=== PATIENT | male | born 1990 | race Caucasian/White ===

== ENCOUNTER 2017-01-08 08:34 | Emergency (ER) | payer BC ==
[2017-01-08 08:40] VITALS: BP 156/90; PULSE 82; RESP 18; TEMP 97.2
--- NOTE | 2017-01-08 08:57 | ED ---
General Adult HPI - General Chief complaint: Urogenital Stated complaint: penile pain Time Seen by Provider: 01/08/17 08:42 Source: patient, RN notes reviewed Mode of arrival: ambulatory Limitations: no limitations - History of Present Illness Initial comments: This a 26-year-old male presents emergency Department with chief complaint of penile injury. Patient states he is having sexual course with his girlfriend states that his penis struck something hard. He states he's not sure exactly what happened , he states that he hit something hard with his penis and was not sure if it was her pelvic bone or something else. Patient states that she was it happened he had some discomfort but states that all this pain has resolved. Patient states that he lost his erection and he states that he's been unable to have an erection since then. Patient states his happened approximately 5 hours ago. Patient states that he feels that his penis is smaller than usual now. Patient denies any bruising, swelling of his penile shaft, penile gland region or swollen. Patient denies any notable was hematuria denies abdominal pain, nausea, vomiting, diarrhea or constipation. - Related Data Home Medications Medication Instructions Recorded Confirmed No Known Home Medications [No 01/08/17 01/08/17 Known Home Medications] Allergies Allergy/AdvReac Type Severity Reaction Status Date / Time No Known Allergies Allergy Verified 01/08/17 09:02 Review of Systems ROS Statement: Those systems with pertinent positive or pertinent negative responses have been documented in the HPI. ROS Other: All systems not noted in ROS Statement are negative. Past Medical History Past Medical History: No Reported History History of Any Multi-Drug Resistant Organisms: None Reported Past Surgical History: No Surgical Hx Reported Past Psychological History: No Psychological Hx Reported Smoking Status: Never smoker Past Alcohol Use History: Occasional Past Drug Use History: None Reported General Exam Limitations: no limitations General appearance: alert, in no apparent distress Respiratory exam: Present: normal lung sounds bilaterally. Absent: respiratory distress, wheezes, rales, rhonchi, stridor Cardiovascular Exam: Present: regular rate, normal rhythm, normal heart sounds. Absent: systolic murmur, diastolic murmur, rubs, gallop, clicks GI/Abdominal exam: Present: soft, normal bowel sounds. Absent: distended, tenderness, guarding, rebound, rigid exam: Present: normal inspection, other (There is no ecchymosis there is no abnormal appearance or curvature noted, there is no obvious urethral injury noted at the surface). Absent: testicular tenderness, urethral discharge, scrotal swelling Back exam: Absent: CVA tenderness (R), CVA tenderness (L) Skin exam: Present: warm, dry, intact, normal color. Absent: rash Course Vital Signs 01/08/17 08:37 Temperature 97.2 F L Pulse Rate 82 Respiratory 18 Rate Blood Pressure 156/90 O2 Sat by Pulse 100 Oximetry Medical Decision Making - Medical Decision Making 26-year-old male present emergency from for penile injury. There is no evidence of penile fracture there is no ecchymosis no swelling no curvature. Patient was unable to provide urine states that he'll follow up with urology. He did not mostly gross hematuria. Disposition Clinical Impression: Penis injury Disposition: HOME SELF-CARE Condition: Stable Additional Instructions: Follow-up with urology.Please return to the Emergency Department if symptoms worsen or any other concerns. Referrals: None,Stated [Primary Care Provider] - 1-2 days Sabino Figueroa MD [STAFF PHYSICIAN] - 1-2 days Time of Disposition: 09:33
== END 2017-01-08 09:50 | disposition home or self-care (01) ==
LOC: EC 08:34
DX: S39.94XA Unspecified injury of external genitals, initial encounter (principal); W22.8XXA Striking against or struck by other objects, initial encounter; Y93.89 Activity, other specified
CPT/HCPCS: 99283

== ENCOUNTER → 2018-05-25 | Outpatient (CLI) | payer BC ==
--- NOTE | 2018-05-25 10:47 | US ---
EXAMINATION TYPE: US abdomen complete DATE OF EXAM: 05/25/2018 COMPARISON: 11/08/2011 CLINICAL HISTORY: R10.11 RUQ Abdominal Pain. RUQ abdomen pain EXAM MEASUREMENTS: Liver Length: 14.1 cm Gallbladder Wall: 0.2 cm CHD: 0.3 cm Spleen: 11.9 cm Right Kidney: 11.3 x 4.7 x 5.2 cm Left Kidney: 11.8 x 4.7 x 5.1 cm Limited exam due to patient body habitus and overlying bowel gas Pancreas: Obscured by bowel gas Liver: wnl Gallbladder: No abnormality visualized Evidence for sonographic Flores's sign: neg CBD: Obscured by overlying bowel gas CHD: wnl Spleen: wnl Right Kidney: wnl Left Kidney: wnl Upper IVC: wnl Abd Aorta: limited visualization of proximal aorta The liver is homogenous. The intrahepatic portion of the IVC and proximal abdominal aorta are within normal limits. There is no evidence of cholelithiasis. Common bile duct is unremarkable.. The spl een is unremarkable. Kidneys are symmetric and free of hydronephrosis. No renal lesions are seen. IMPRESSION: No sonographic evidence of cholelithiasis or acute cholecystitis. HIDA scan with CCK coul d be performed if there is further concern for chronic cholecystitis or biliary dyskinesia given this patient's right upper quadrant pain. Pancreas is obscured by bowel gas.
== END | disposition home or self-care (01) ==
LOC: RADUSWWP 08:48
PROVIDERS: ATTEND Internal Medicine
DX: R10.11 Right upper quadrant pain (principal)
CPT/HCPCS: 76700

== ENCOUNTER → 2018-06-09 | Outpatient (CLI) | payer BC ==
--- NOTE | 2018-06-09 14:25 | NM ---
EXAMINATION TYPE: NM hepatobiliary w EF DATE OF EXAM: 06/09/2018 COMPARISON: NONE HISTORY: Abdominal pain TECHNIQUE: After the intravenous administration of 5.26 mCi Tc 99m Mebrofenin hepatobiliary scintigra phy is performed. Immediate images post injection. FINDINGS: There is satisfactory initial accumulation of tracer by the liver. The gallbladder is visualized wit hin 6 minutes. The small bowel activity is noted within 14 minutes. At one hour 8 ounces of oral en sure plus is given to mimic CCK and gallbladder ejection fraction is calculated at 69 %, in the fabio l range. Therefore there is no scintigraphic evidence of cystic or common bile duct obstruction to s uggest acute cholecystitis or gallbladder dyskinesia. IMPRESSION: No evidence of cystic duct obstruction. Normal ejection fraction.
== END | disposition home or self-care (01) ==
LOC: RADNMMAIN 11:55
PROVIDERS: ATTEND Internal Medicine
DX: R10.11 Right upper quadrant pain (principal)
CPT/HCPCS: 78226; A9537

== ENCOUNTER 2018-12-25 07:32 | Day surgery (SDC) | payer BC ==
[2018-12-24 09:34] VITALS: BMI 37.2
[~2018-12-25 07:32] MED LIST: LACTATED RINGERS 1,000 ML IV SCH; LIDOCAINE 1% 20 ML VIAL (10MG/ML) FOR IV START INTRADERMA PRN
[2018-12-25 07:58] VITALS: RESP 16; TEMP 98.4
[2018-12-25] MEDS ORDERED: PROPOFOL 10 MG/ML 20 ML VIAL IV ONE (08:50)
[2018-12-25] MEDS ORDERED: MIDAZOLAM 2 MG/2 ML VIAL ONE (08:50)
--- NOTE | 2018-12-25 09:30 | P.PCN ---
Date of Procedure: 12/25/18 Description of Procedure: BRIEF HISTORY: Patient is a 28-year-old pleasant male scheduled for an elective colonoscopy as a part of evaluation of bright red blood per rectum PROCEDURE PERFORMED: Colonoscopy with polypectomy. PREOPERATIVE DIAGNOSIS: Per rectum, hematochezia, rectal bleeding. ESTIMATED BLOOD LOSS: Minimal. IV sedation per Anesthesia. PROCEDURE: After informed consent was obtained, the patient, was brought into the endoscopy unit. IV sedation was administered by Anesthesia under continuous monitoring. Digital rectal examination was normal. Initially the Olympus CF-190 flexible video colonoscope was then inserted in the rectum, gradually advanced into the cecum without any difficulty. Careful examination was performed as the scope was gradually being withdrawn. Ileocecal valve and the appendiceal orifice were visualized and appeared normal. Prep was excellent. Mucosa of the cecum, ascending colon, transverse colon, descending colon, sigmoid colon, and rectum appeared normal. Small 3 mm transverse colon polyp removed with cold forceps. Retroflexion was performed in the rectum and no lesions were seen, mild internal hemorrhoids. The patient tolerated the procedure well. IMPRESSION: Normal-appearing colon from rectum to cecum, with mild internal hemorrhoids seen. Small sessile transverse colon polyp removed with cold forceps. RECOMMENDATIONS: Findings of this examination were discussed with the patient and his fianc. Okay to resume diet. Continue current medical management. If further bleeding would recommend local hemorrhoidal treatment with sitz baths and topical steroid therapy. Repeat colonoscopy at 43 years old or 33 years old if polyp is tubular adenoma
[2018-12-25 09:45] VITALS: BP 117/70; PULSE 97
== END 2018-12-25 09:55 | disposition home or self-care (01) ==
LOC: ORWHC2ENDO 07:32
PROVIDERS: ATTEND Internal Medicine
DX: K64.8 Other hemorrhoids (principal); D12.3 Benign neoplasm of transverse colon
CPT/HCPCS: 88305; 45380; J2250; J2704

== ENCOUNTER 2020-07-16 16:56 | Emergency (ER) | payer BC ==
[2020-07-16 18:14] VITALS: TEMP 98.9
--- NOTE | 2020-07-16 18:14 | ED ---
General Adult HPI <Ming Nash - Last Filed: 07/16/20 18:14> <Vy Call - Last Filed: 07/16/20 23:35> - General Stated complaint: Chest pain - History of Present Illness Initial comments: 30-year-old male with no significant past medical history presents to the emergency room with a chief complaint of chest pain. States the pain started 2 PM today while he was at work. States the pain is midsternal and sharp in nature that seems to be exacerbated when taking deep breaths. He reports having palpitations or his heart is beating "funny.". He does feel slightly dyspneic on exertion. He does report having cold sweats but denies any lightheadedness or dizziness at this time. Denies any blurry one-sided weakness or paresthesias. States he has previously had pain like this since he was 14 years old but has never been evaluated for. States it has never lasted this long. Denies history of early cardiac related in the family. (Ming Nash) 30-year-old male with no past nuchal history who presents to the emergency department with reported chest pain and palpitations. 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 States that in the past 10 years this is approximately the fifth time that it has happened to him. States he'll normally wait about an hour and it will go away. Today he waited 4 hours and the symptoms persisted therefore he came into the emergency room for evaluation. Denies any excess caffeine intake. No history of previous cardiac issues. No previous history of sudden cardiac in family members. Patient does not take any medications. Denies cough or fevers. Admits to shortness of breath. Denies any illicit drug use. No other alleviating, precipitating or modifying factors (Vy Call) - Related Data Home Medications Medication Instructions Recorded Confirmed No Known Home Medications 01/08/17 07/16/20 Allergies Allergy/AdvReac Type Severity Reaction Status Date / Time No Known Allergies Allergy Verified 07/16/20 19:30 Review of Systems ROS Other: All systems not noted in ROS Statement are negative. <Ming Nash - Last Filed: 07/16/20 18:14> ROS Other: All systems not noted in ROS Statement are negative. <Vy Call - Last Filed: 07/16/20 23:35> ROS Statement: Those systems with pertinent positive or pertinent negative responses have been documented in the HPI. Past Medical History Past Medical History: No Reported History Additional Past Medical History / Comment(s): HAS BEEN HAVING ABD. PAIN AND RECENT BLOOD IN STOOL History of Any Multi-Drug Resistant Organisms: None Reported Past Surgical History: No Surgical Hx Reported Past Anesthesia/Blood Transfusion Reactions: No Reported Reaction Past Psychological History: No Psychological Hx Reported Past Alcohol Use History: None Reported Past Drug Use History: None Reported - Past Family History Mother Family Medical History: No Reported History <Ming Nash - Last Filed: 07/16/20 18:14> Course Vital Signs 07/16/20 07/16/20 07/16/20 18:10 18:40 20:49 Temperature 98.9 F Pulse Rate 128 H 112 H 97 Respiratory 18 20 18 Rate Blood Pressure 147/74 147/87 125/78 O2 Sat by Pulse 100 100 97 Oximetry EKG Findings - EKG Comments: EKG Findings:: EKG at 1817 demonstrates SVT with rate of 234. QRS 66. QTC of 367. No acute ST segment elevations. Mild rate ST depression in inferior and lateral leads. EKG done at 1842 demonstrates sinus tachycardia with a ve ntricular rate of 113. CT interval 154. QRS 80. QTC of 406. No acute ST segment elevations or depressions. Mild delta wave in the lateral leads <Vy Call - Last Filed: 07/16/20 23:35> Medical Decision Making - Lab Data Result diagrams: 07/16/20 18:37 07/16/20 18:37 <Vy Call Ovidio - Last Filed: 07/16/20 23:35> - Medical Decision Making Upon arrival patient is probably placed in trauma bay 2 and hooked up to continuous pulse ox and cardiac monitoring. Patient does have a heart rate of 240. He is placed on [employer] heart monitor. SVT is identified on rhythm strip. Review attempted carotid massage and Valsalva maneuvers. IV was performed with the patient blowing in a syringe. Patient is able to convert himself into a normal sinus rhythm. Repeat EKG is performed. Laboratory studies were conducted. Upon return of the results they're discuss with Dr. Chavis. Dr. Chavis states that the patient can be discharged home and he will have his office call him tomorrow to make an appointment. Patient agreed to this. Given written and verbal discharge instructions and discharged home. Instructed to return to the emergency room for any new or worsening symptoms (Vy Call) - Lab Data Lab Results 07/16/20 07/16/20 07/16/20 Range/Units 18:37 18:37 18:37 WBC 11.6 H (3.8-10.6) k/uL RBC 6.03 H (4.30-5.90) m/uL Hgb 16.8 (13.0-17.5) gm/dL Hct 48.9 (39.0-53.0) % MCV 81.2 (80.0-100.0) fL MCH 27.8 (25.0-35.0) pg MCHC 34.3 (31.0-37.0) g/dL RDW 13.0 (11.5-15.5) % Plt Count 278 (150-450) k/uL MPV 7.5 Neutrophils % 65 % Lymphocytes % 25 % Monocytes % 6 % Eosinophils % 2 % Basophils % 0 % Neutrophils # 7.6 (1.3-7.7) k/uL Lymphocytes # 2.8 (1.0-4.8) k/uL Monocytes # 0.7 (0-1.0) k/uL Eosinophils # 0.3 (0-0.7) k/uL Basophils # 0.1 (0-0.2) k/uL PT 10.9 (9.0-12.0) sec INR 1.0 (<1.2) APTT 26.5 (22.0-30.0) sec D-Dimer <0.17 (<0.60) mg/L FEU Sodium 139 (137-145) mmol/L Potassium 4.3 (3.5-5.1) mmol/L Chloride 104 (98-107) mmol/L Carbon Dioxide 24 (22-30) mmol/L Anion Gap 11 mmol/L BUN 17 (9-20) mg/dL Creatinine 1.21 (0.66-1.25) mg/dL Est GFR (CKD-EPI)AfAm >90 (>60 ml/min/1.73 sqM) Est GFR (CKD-EPI)NonAf 79 (>60 ml/min/1.73 sqM) Glucose 107 H (74-99) mg/dL Calcium 9.9 (8.4-10.2) mg/dL Magnesium 2.1 (1.6-2.3) mg/dL Total Bilirubin 1.2 (0.2-1.3) mg/dL AST 36 (17-59) U/L ALT 67 H (4-49) U/L Alkaline Phosphatase 80 (38-126) U/L Troponin I (0.000-0.034) ng/mL Total Protein 8.0 (6.3-8.2) g/dL Albumin 5.0 (3.5-5.0) g/dL TSH 1.290 (0.465-4.680) mIU/L Coronavirus (PCR) (Not Detectd) 07/16/20 07/16/20 Range/Units 18:37 18:37 WBC (3.8-10.6) k/uL RBC (4.30-5.90) m/uL Hgb (13.0-17.5) gm/dL Hct (39.0-53.0) % MCV (80.0-100.0) fL MCH (25.0-35.0) pg MCHC (31.0-37.0) g/dL RDW (11.5-15.5) % Plt Count (150-450) k/uL MPV Neutrophils % % Lymphocytes % % Monocytes % % Eosinophils % % Basophils % % Neutrophils # (1.3-7.7) k/uL Lymphocytes # (1.0-4.8) k/uL Monocytes # (0-1.0) k/uL Eosinophils # (0-0.7) k/uL Basophils # (0-0.2) k/uL PT (9.0-12.0) sec INR (<1.2) APTT (22.0-30.0) sec D-Dimer (<0.60) mg/L FEU Sodium (137-145) mmol/L Potassium (3.5-5.1) mmol/L Chloride (98-107) mmol/L Carbon Dioxide (22-30) mmol/L Anion Gap mmol/L BUN (9-20) mg/dL Creatinine (0.66-1.25) mg/dL Est GFR (CKD-EPI)AfAm (>60 ml/min/1.73 sqM) Est GFR (CKD-EPI)NonAf (>60 ml/min/1.73 sqM) Glucose (74-99) mg/dL Calcium (8.4-10.2) mg/dL Magnesium (1.6-2.3) mg/dL Total Bilirubin (0.2-1.3) mg/dL AST (17-59) U/L ALT (4-49) U/L Alkaline Phosphatase (38-126) U/L Troponin I 0.039 H* (0.000-0.034) ng/mL Total Protein (6.3-8.2) g/dL Albumin (3.5-5.0) g/dL TSH (0.465-4.680) mIU/L Coronavirus (PCR) Not Detected (Not Detectd) Disposition <Ming Nash - Last Filed: 07/16/20 18:14> Is patient prescribed a controlled substance at d/c from ED?: No Time of Disposition: 20:16 <Vy Call - Last Filed: 07/16/20 23:35> Clinical Impression: Chest pain, SVT (supraventricular tachycardia) Disposition: HOME SELF-CARE Condition: Stable Instructions (If sedation given, give patient instructions): Supraventricular Tachycardia (ED) Additional Instructions: Dr. Chavis, the window decorator will call you tomorrow to make an appointment. Return to the ED for any new or worsening symptoms. Referrals: Pam Lockwood MD [Primary Care Provider] - 1-2 days
[2020-07-16 18:51] LABS: Basophils # (A) 0.1 k/uL (0-0.2); Basophils % (A) 0 %; Eosinophils # (A) 0.3 k/uL (0-0.7); Eosinophils % (A) 2 %; HCT 48.9 % (39.0-53.0); HGB 16.8 gm/dL (13.0-17.5); Lymphocytes # (A) 2.8 k/uL (1.0-4.8); Lymphocytes % (A) 25 %; MCH 27.8 pg (25.0-35.0); MCHC 34.3 g/dL (31.0-37.0); MCV 81.2 fL (80.0-100.0); Mean Platelet Volume 7.5; Monocytes # (A) 0.7 k/uL (0-1.0); Monocytes % (A) 6 %; Neutrophils # (A) 7.6 k/uL (1.3-7.7); Neutrophils % (A) 65 %; Platelet Count 278 k/uL (150-450); RBC 6.03 m/uL (4.30-5.90); WBC 11.6 k/uL (3.8-10.6)
[2020-07-16 18:57] LABS: ALT 67 U/L (4-49); AST 36 U/L (17-59); African American GFR (CKD) >90 (>60 ml/min/1.73 sqM); Alkaline Phosphatase 80 U/L (38-126); Anion Gap 11 mmol/L; Blood Urea Nitrogen 17 mg/dL (9-20); Calcium 9.9 mg/dL (8.4-10.2); Carbon Dioxide 24 mmol/L (22-30); Chloride 104 mmol/L (98-107); Glucose 107 mg/dL (74-99); Magnesium 2.1 mg/dL (1.6-2.3); Non-African American GFR(CKD) 79 (>60 ml/min/1.73 sqM); Potassium 4.3 mmol/L (3.5-5.1); Sodium 139 mmol/L (137-145); Total Bilirubin 1.2 mg/dL (0.2-1.3)
[2020-07-16 19:11] LABS: D-Dimer <0.17 mg/L FEU (<0.60); Partial Thromboplastin Time 26.5 sec (22.0-30.0); Prothrombin Time 10.9 sec (9.0-12.0)
--- NOTE | 2020-07-16 19:31 | XR ---
EXAMINATION: XR chest 2V DATE AND TIME: 07/16/2020 7:02 PM CLINICAL INDICATION: PHH; Chest Pain TECHNIQUE: Departmental protocol COMPARISON: None FINDINGS: The lungs are clear. The pleural spaces are negative. The cardiac silhouette is not enlarged. The remainder of the mediastinal silhouette is unremarkable. The skeletal structures and soft tissues are negative for acute findings. IMPRESSION: NO ACUTE PROCESS.
[2020-07-16 20:50] VITALS: BP 125/78; PULSE 97; RESP 18
== END 2020-07-16 20:50 | disposition home or self-care (01) ==
LOC: EC 16:56
DX: I47.1 Supraventricular tachycardia (principal); Z20.822 Contact with and (suspected) exposure to COVID-19
CPT/HCPCS: 36415; 71046; 80053; 83735; 84443; 84484; 85025; 85379; 85610; 85730; 87635; 93005; 99285

== ENCOUNTER 2023-04-18 13:43 | Emergency (ER) | payer BC ==
--- NOTE | 2023-04-18 13:49 | ED ---
General Adult HPI - General Source: RN notes reviewed <Grecia Lerma - Last Filed: 04/18/23 13:48> <Alessandro Murrieta - Last Filed: 04/18/23 17:10> - General Stated complaint: Palpitation Time Seen by Provider: 04/18/23 13:48 - History of Present Illness Initial comments: 33-year-old male with no significant past medical history presents the emergency department the chief complaint of palpitations and diaphoresis. (Grecia Lerma) This is a 33-year-old male who presents emergency Department with a past medical history significant for SVT. Patient states about 12:30 today he felt his heart start to race and his chest became tight which is exactly what occurred in the past. Patient states he hasn't had this occur in 3 years. Patient states he's got no fever chills. Patient denies any cough though he states a few weeks ago he thinks he had walking pneumonia. Patient denies any back pain. Patient's headache patient denies numbness weakness. Patient denies abdominal pain. (Alessandro Murrieta) - Related Data Home Medications Medication Instructions Recorded Confirmed No Known Home Medications 01/08/17 04/18/23 Allergies Allergy/AdvReac Type Severity Reaction Status Date / Time No Known Allergies Allergy Verified 04/18/23 15:42 Review of Systems ROS Other: All systems not noted in ROS Statement are negative. <Grecia Lerma - Last Filed: 04/18/23 13:48> ROS Other: All systems not noted in ROS Statement are negative. <Alessandro Murrieta - Last Filed: 04/18/23 17:10> ROS Statement: Those systems with pertinent positive or pertinent negative responses have been documented in the HPI. Past Medical History Past Medical History: No Reported History Additional Past Medical History / Comment(s): HAS BEEN HAVING ABD. PAIN AND RECENT BLOOD IN STOOL History of Any Multi-Drug Resistant Organisms: None Reported Past Surgical History: No Surgical Hx Reported Past Anesthesia/Blood Transfusion Reactions: No Reported Reaction Past Psychological History: No Psychological Hx Reported Past Alcohol Use History: None Reported Past Drug Use History: None Reported - Past Family History Mother Family Medical History: No Reported History <Grecia Lerma - Last Filed: 04/18/23 13:48> General Exam <Grecia Lerma - Last Filed: 04/18/23 13:48> <Alessandro Murrieta - Last Filed: 04/18/23 17:10> - General Exam Comments Initial Comments: Visual Physical Exam Vital signs reviewed General: Well-appearing, nontoxic, no acute distress. Head: Normocephalic, atraumatic Eyes: PERRLA, EOMI ENT: Airway patent Chest: Nonlabored breathing Skin: No visual rash, normal skin tone Neuro: Alert and oriented 3 Musculoskeletal: No gross abnormalities (Grecia Lerma) GENERAL: Patient is well-developed and well-nourished. Patient is nontoxic and well- hydrated and is in mild distress ENT: Neck is soft and supple. No significant lymphadenopathy is noted. Oropharynx is clear. Moist mucous membranes. Neck has full range of motion without eliciting any pain. EYES: The sclera were anicteric and conjunctiva were pink and moist. Extraocular movements were intact and pupils were equal round and reactive to light. Eyelids were unremarkable. PULMONARY: Unlabored respirations. Good breath sounds bilaterally. No audible rales rhonchi or wheezing was noted. CARDIOVASCULAR: Patient is tachycardic at 230 beats a minute ABDOMEN: Soft and nontender with normal bowel sounds. SKIN: Skin is clear with no lesions or rashes and otherwise unremarkable. NEUROLOGIC: Patient is alert and oriented x3. Cranial nerves II through XII are grossly intact. Motor and sensory are also intact. Normal speech, volume and content. Symmetrical smile. Cerebellar exam grossly intact. MUSCULOSKELETAL: Normal extremities with adequate strength and full range of motion. No lower extremity swelling or edema. No calf tenderness. LYMPHATICS: No significant lymphadenopathy is noted PSYCHIATRIC: Normal psychiatric evaluation. (Alessandro Murrieta) Course Vital Signs 04/18/23 04/18/23 04/18/23 14:20 14:26 14:27 Temperature 98 F Pulse Rate 230 H 243 H Pulse Rate [ 240 H Fisheries Inspector ] Respiratory 18 22 Rate Blood Pressure 100/50 110/90 O2 Sat by Pulse 98 96 Oximetry 04/18/23 04/18/23 04/18/23 14:30 14:42 15:21 Temperature Pulse Rate 136 H 120 H 121 H Pulse Rate [ Fisheries Inspector ] Respiratory 20 18 18 Rate Blood Pressure 116/92 122/88 123/86 O2 Sat by Pulse 99 99 97 Oximetry Medical Decision Making <Grecia Lerma - Last Filed: 04/18/23 13:48> - Lab Data Result diagrams: 04/18/23 14:19 04/18/23 14:19 <Alessandro Murrieta - Last Filed: 04/18/23 17:10> - Medical Decision Making I performed the quick note portion of this exam, verbal signature Grecia Lerma PA-C (Grecia Lerma) EKG is interpreted by myself. EKG shows SVT at 230 bpm QRS is 70 QT interval is 170 QTC is 282. Patient's EKG shows no ST segment elevation or depression There was a vagal maneuver done on the patient which converted the patient to a normal sinus rhythm. Repeat EKG was done I interpreted that EKG. Patient's EKG shows sinus tachycardia at 119 bpm MS interval 265 QRS is 76 QT interval 370 QTC is 341. Patient indicated to us that his normal heart rate is at 120 beats a minute I went back in and reevaluate the patient patient's heart rate was now normal sinus rhythm at 91 bpm patient was asymptomatic. Was pt. sent in by a medical professional or institution (GHASSAN Nguyen, [employer] TRA[employer], urgent care, hospital, or residential...) When possible be specific @ -No Did you speak to anyone other than the patient for history (EMS, parent, family, police, friend...)? What history was obtained from this source @ -No Did you review nursing and triage notes (agree or disagree)? Why? @ -I reviewed and agree with nursing and triage notes Were old charts reviewed (outside hosp., previous admission, EMS record, old EKG, old radiological studies, urgent care reports/EKG's, residential records)? Report findings @ -I reviewed prior charts and lab work comes patient Differential Diagnosis (chest pain, altered mental status, abdominal pain women, abdominal pain men, vaginal bleeding, weakness, fever, dyspnea, syncope, headache, dizziness, GI bleed, back pain, seizure, CVA, palpatations, mental health, musculoskeletal)? @ -Differential Palpitations Ventricular arrhythmias, atrial arrhythmias, myocardial infarction, anemia, thyrotoxicosis, electrolyte imbalance, hypokalemia, pulmonary embolism, pulmonary disease, drugs, alcohol, anxiety, stress.... This is not meant to be an all-inclusive list. EKG interpreted by me (3pts min.). @ -As above X-rays interpreted by me (1pt min.). @ -Chest x-ray shows No acute abnormality CT interpreted by me (1pt min.). @ -None done U/S interpreted by me (1pt. min.). @ -None done What testing was considered but not performed or refused? (CT, X-rays, U/S, labs)? Why? @ -None What meds were considered but not given or refused? Why? @ -None Did you discuss the management of the patient with other professionals (professionals i.e. , PA, [employer] TRAFFIC CONTROLLER, lab, RT, psych nurse, social organization professor, client technical professional, teacher, special forces warrant officer, case work aide)? Give summary @ -No Was smoking cessation discussed for >3mins.? @ -No Was critical care preformed (if so, how long)? @ -No Were there social determinants of health that impacted care today? How? (Homelessness, low income, unemployed, alcoholism, drug addiction, transportation, low edu. Level, literacy, decrease access to med. care, residential, rehab)? @ -No Was there de-escalation of care discussed even if they declined (Discuss DNR or withdrawal of care, Hospice)? DNR status @ -No What co-morbidities impacted this encounter? (DM, HTN, Smoking, COPD, CAD, Cancer, CVA, ARF, Chemo, Hep., AIDS, mental health diagnosis, sleep apnea, morbid obesity)? @ -None Was patient admitted / discharged? Hospital course, mention meds given and route, prescriptions, significant lab abnormalities, going to OR and other pertinent info. @ -Vagal maneuvers were performed on the patient and he converted to a normal sinus rhythm at my last review with the patient he was at a heart rate of 91 bpm and without symptoms Undiagnosed new problem with uncertain prognosis? @ -No Drug Therapy requiring intensive monitoring for toxicity (Heparin, Nitro, Insulin, Cardizem)? @ -No Were any procedures done? @ -No Diagnosis/symptom? @ -SVT Acute, or Chronic, or Acute on Chronic? @ -Acute Uncomplicated (without systemic symptoms) or Complicated (systemic symptoms)? @ -Complicated Side effects of treatment? @ -No Exacerbation, Progression, or Severe Exacerbation? @ -No Poses a threat to life or bodily function? How? (Chest pain, [place], [place], pneumonia, PE, COPD, DKA, ARF, appy, cholecystitis, CVA, Diverticulitis, Homicidal, Suicidal, threat to staff... and all critical care pts) @ -Yes this can cause poor perfusion and end organ dysfunction (Alessandro Murrieta) - Lab Data Lab Results 04/18/23 04/18/23 04/18/23 Range/Units 14:19 14:19 14:19 WBC 13.3 H (3.8-10.6) k/uL RBC 6.56 H (4.30-5.90) m/uL Hgb 18.2 H (13.0-17.5) gm/dL Hct 54.2 H (39.0-53.0) % MCV 82.6 (80.0-100.0) fL MCH 27.7 (25.0-35.0) pg MCHC 33.6 (31.0-37.0) g/dL RDW 12.9 (11.5-15.5) % Plt Count 328 (150-450) k/uL MPV 7.5 Neutrophils % 63 % Lymphocytes % 24 % Monocytes % 6 % Eosinophils % 4 % Basophils % 1 % Neutrophils # 8.4 H (1.3-7.7) k/uL Lymphocytes # 3.2 (1.0-4.8) k/uL Monocytes # 0.8 (0-1.0) k/uL Eosinophils # 0.5 (0-0.7) k/uL Basophils # 0.1 (0-0.2) k/uL Sodium 140 (137-145) mmol/L Potassium 4.1 (3.5-5.1) mmol/L Chloride 102 (98-107) mmol/L Carbon Dioxide 26 (22-30) mmol/L Anion Gap 12 mmol/L BUN 14 (9-20) mg/dL Creatinine 1.06 (0.66-1.25) mg/dL Est GFR (CKD-EPI)AfAm >90 (>60 ml/min/1.73 sqM) Est GFR (CKD-EPI)NonAf >90 (>60 ml/min/1.73 sqM) Glucose 104 H (74-99) mg/dL Calcium 9.9 (8.4-10.2) mg/dL Magnesium 2.2 (1.6-2.3) mg/dL Total Bilirubin 0.9 (0.2-1.3) mg/dL AST 43 (17-59) U/L ALT 90 H (4-49) U/L Alkaline Phosphatase 125 (38-126) U/L Troponin I 0.017 (0.000-0.034) ng/mL Total Protein 8.0 (6.3-8.2) g/dL Albumin 4.7 (3.5-5.0) g/dL Disposition <Grecia Lerma - Last Filed: 04/18/23 13:48> Is patient prescribed a controlled substance at d/c from ED?: No Time of Disposition: 17:10 <Alessandro Murrieta - Last Filed: 04/18/23 17:10> Clinical Impression: Supraventricular tachycardia Disposition: HOME SELF-CARE Condition: Good Instructions (If sedation given, give patient instructions): Supraventricular Tachycardia (ED) Referrals: Pam Lockwood MD [Primary Care Provider] - 1-2 days
[2023-04-18 14:51] LABS: Basophils # (A) 0.1 k/uL (0-0.2); Basophils % (A) 1 %; Eosinophils # (A) 0.5 k/uL (0-0.7); Eosinophils % (A) 4 %; HCT 54.2 % (39.0-53.0); HGB 18.2 gm/dL (13.0-17.5); Lymphocytes # (A) 3.2 k/uL (1.0-4.8); Lymphocytes % (A) 24 %; MCH 27.7 pg (25.0-35.0); MCHC 33.6 g/dL (31.0-37.0); MCV 82.6 fL (80.0-100.0); Mean Platelet Volume 7.5; Monocytes # (A) 0.8 k/uL (0-1.0); Monocytes % (A) 6 %; Neutrophils # (A) 8.4 k/uL (1.3-7.7); Neutrophils % (A) 63 %; Platelet Count 328 k/uL (150-450); RBC 6.56 m/uL (4.30-5.90); RDW 12.9 % (11.5-15.5); WBC 13.3 k/uL (3.8-10.6)
[2023-04-18 15:11] LABS: ALT 90 U/L (4-49); AST 43 U/L (17-59); African American GFR (CKD) >90 (>60 ml/min/1.73 sqM); Albumin 4.7 g/dL (3.5-5.0); Alkaline Phosphatase 125 U/L (38-126); Anion Gap 12 mmol/L; Blood Urea Nitrogen 14 mg/dL (9-20); Calcium 9.9 mg/dL (8.4-10.2); Carbon Dioxide 26 mmol/L (22-30); Chloride 102 mmol/L (98-107); Glucose 104 mg/dL (74-99); Magnesium 2.2 mg/dL (1.6-2.3); Non-African American GFR(CKD) >90 (>60 ml/min/1.73 sqM); Potassium 4.1 mmol/L (3.5-5.1); Sodium 140 mmol/L (137-145); Total Bilirubin 0.9 mg/dL (0.2-1.3)
[2023-04-18 17:30] VITALS: BP 125/93; PULSE 98; RESP 20; TEMP 98.1
--- NOTE | 2023-04-18 20:03 | XR ---
EXAMINATION TYPE: XR chest 2V DATE OF EXAM: 04/18/2023 2:54 PM CLINICAL INDICATION:Male, 33 years old with history of dysrhythmia; [facility] COMPARISON: 07/16/2020 TECHNIQUE: XR chest 2V. Frontal PA and lateral views of the chest. FINDINGS: Lines/Tubes: EKG leads and wires overlie the chest. Heart/mediastinum: Heart size is normal. Mediastinal silhouette is stable and unremarkable. Pulmonary vascularity: Not increased, Lungs/Pleura: There is no evidence of pleural effusion, focal consolidation, or pneumothorax. Musculoskeletal: No acute osseous abnormality demonstrated in the limits of the exam. Other findings: None. IMPRESSION: No acute findings, or significant interval change.
== END 2023-04-18 17:21 | disposition home or self-care (01) ==
LOC: EC 13:43
DX: I47.10 Supraventricular tachycardia, unspecified (principal)
CPT/HCPCS: 36415; 71046; 80053; 83735; 84484; 85025; 93005; 99285

== ENCOUNTER → 2023-07-06 | Outpatient (CLI) | payer BC ==
[2023-07-06 16:09] LABS: Blood Urea Nitrogen 10.7 mg/dL (9.0-27.0); Carbon Dioxide 26.5 mmol/L (21.6-31.8); Chloride 104 mmol/L (96-109); Potassium 4.5 mmol/L (3.5-5.5); Sodium 141 mmol/L (135-145)
[2023-07-06 16:31] LABS: HGB 16.3 g/dL (13.0-17.0); MCV 84.6 FL (80.0-97.0); Mean Platelet Volume 11.3 FL (9.5-12.2); NRBC Per 100 WBC 0 X 10*3/uL (0.00-0.01); Platelet Count 267 X 10*3/uL (140-440); RBC 6.03 X 10*6/uL (4.40-5.60); RDW 12.6 % (11.5-14.5); WBC 7.34 X 10*3/uL (4.50-10.00)
== END | disposition home or self-care (01) ==
LOC: LABWHC1 10:32
PROVIDERS: ATTEND Internal Medicine Clinical Cardiac Electrophysiology
DX: Z01.812 Encounter for preprocedural laboratory examination (principal); E78.5 Hyperlipidemia, unspecified; I47.10 Supraventricular tachycardia, unspecified; R55 Syncope and collapse
CPT/HCPCS: 36415; 80051; 82565; 84520; 85027

== ENCOUNTER 2023-07-13 12:35 | Day surgery (SDC) | payer BC ==
[2023-07-10 13:22] VITALS: BMI 39.1
[2023-07-13] MEDS: SODIUM CHLORIDE 0.9% 500 ML 500 ML IV ONE (13:26)
[2023-07-13 14:07] LABS: ALT 61 U/L (4-49); AST 36 U/L (17-59); African American GFR (CKD) >90 (>60 ml/min/1.73 sqM); Albumin 4.7 g/dL (3.5-5.0); Alkaline Phosphatase 84 U/L (38-126); Anion Gap 10 mmol/L; Blood Urea Nitrogen 16 mg/dL (9-20); Calcium 9.2 mg/dL (8.4-10.2); Carbon Dioxide 23 mmol/L (22-30); Chloride 107 mmol/L (98-107); Glucose 98 mg/dL (74-99); Non-African American GFR(CKD) >90 (>60 ml/min/1.73 sqM); Potassium 4.1 mmol/L (3.5-5.1); Sodium 140 mmol/L (137-145); Total Bilirubin 2.3 mg/dL (0.2-1.3); Total Protein 7.8 g/dL (6.3-8.2)
[2023-07-13] MEDS ORDERED: METOPROLOL TARTRATE 5 MG/5 ML VIAL IVP ONE (14:36)
[2023-07-13] MEDS ORDERED: ISOPROTERENOL 250 MCG/1.25 ML SYR IV ONE (14:36)
[2023-07-13] MEDS ORDERED: MIDAZOLAM 2 MG/2 ML VIAL ONE (14:36)
[2023-07-13] MEDS ORDERED: fentaNYL (PF) 50 MCG/ML 2 ML AMP ONE (14:36)
[2023-07-13] MEDS ORDERED: LIDOCAINE 1% INJ 10MG/ML (20 ML MDV) ONE (14:52)
[2023-07-13] MEDS: LIDOCAINE 1% INJ 10MG/ML (20 ML MDV) SQ ONE (15:01)
[2023-07-13] MEDS: HEPARIN SODIUM (1,000 UNIT/ML) 1,000 UNIT in SODIUM CHLORIDE 0.9% 1,000 ML IRRIGATION ONE (16:39)
[2023-07-13] MEDS ORDERED: ACETAMINOPHEN TAB 325 MG TAB PO PRN (16:45)
--- NOTE | 2023-07-13 16:50 | P.PRLE ---
RE: Miguel Ángel Sánchez Dear Pam Miguel Ángel Sánchez underwent a diagnostic EP study for supraventricular tachycardia with heart rates above 230 beats a minute My original diagnosis was an atrial tachycardia of/atrial fibrillation with one-to-one conduction His diagnostic EP study revealed AV penelope reentrant tachycardia with a ventricular rate above 220 beats a minute that quickly degenerated into atrial fibrillation and then into 2-1 atrial tachycardia with RVR He underwent successful ablation of the slow pathway for the treatment of AV penelope reentry. Following that AV penelope reentry could not be reinduced and neither could atrial fibrillation However he is at risk for atrial fibrillation and atrial tachycardia in the future I would recommend weight reduction and assessment for sleep apnea At this point he does not need any anticoagulation Thank you for entrusting me with the care of the patient Warm regards Sincerely Matt Chavis
--- NOTE | 2023-07-13 16:54 | P.HPCAR ---
History of Present Illness This is Dr. Chavis dictating an H/P on this patient The patient was interviewed and examined IMPRESSION / ASSESSMENT: Exercise-induced SVT with heart rates greater than 230 beats a minute associated with presyncope Possible response to vagal maneuvers Dyslipidemia PLAN: Diagnostic EP study and ablation of SVT or atrial tachycardia depending upon the results of the EP study patient is currently on Xarelto 20 mg p.o. daily for possible atrial fibrillation. Depending upon the results of the EP study further recomm endations will be made Weight reduction and assessment of sleep apnea HPI Patient has had presyncope associated palpitations. He had supraventricular tachycardia greater than 230 beats a minute that is triggered by exercising He has not had any further syncopal spells since Denies any chest discomfort dizziness or syncope thereafter ROS: No fever chills or rigors, no cough, phlegm or expectoration, no nausea, vomiting or diarrhea, no hematuria, dysuria, no musculoskeletal complaints, no strokes or seizures, no skin lesions. EXAMINATION: 146/73 mmHg pulse rate 90 beats a minute afebrile Breath sounds are clear no rhonchi no crackles Heart sounds S1-S2 normal no murmurs Abdomen soft Extremities warm no edema REVIEW OF LABS, ECG & MEDICAL DATA Normal sodium and potassium Normal BUN and creatinine ALT mildly elevated at 61 with a total bilirubin of 2.3. Patient had a recent viral infection with mild cough no fever chills or rigors at this time TSH 1.5 Physical Exam Vitals: Vital Signs Temp Pulse Resp BP BP Pulse Ox 07/13/23 13:18 98.3 F 91 16 146/73 152/76 97 Intake and Output 07/13/23 07/13/23 07/13/23 06:59 14:59 22:59 Intake Total 520 180 Balance 520 180 Intake: IV 520 180 Other: Weight 133.3 kg Past Medical History Past Medical History: No Reported History Additional Past Medical History / Comment(s): IBS., states he snores heavily and his states he catches his breath when sleeping., states episode of rapid heart rate., See Cardiology H & P. History of Any Multi-Drug Resistant Organisms: None Reported Past Surgical History: No Surgical Hx Reported Additional Past Surgical History / Comment(s): ?hernia as infant Past Anesthesia/Blood Transfusion Reactions: No Reported Reaction Smoking Status: Never smoker - Past Family History Mother Family Medical History: No Reported History Physical Examination Vital Signs Temp Pulse Resp BP BP Pulse Ox 07/13/23 13:18 98.3 F 91 16 146/73 152/76 97 Intake and Output 07/13/23 07/13/23 07/13/23 06:59 14:59 22:59 Intake Total 520 180 Balance 520 180 Intake: IV 520 180 Other: Weight 133.3 kg Results 07/13/23 13:00 Cardiac Enzymes 07/13/23 Range/Units 13:00 AST 36 (17-59) U/L Comprehensive Metabolic Panel 07/13/23 Range/Units 13:00 Sodium 140 (137-145) mmol/L Potassium 4.1 (3.5-5.1) mmol/L Chloride 107 (98-107) mmol/L Carbon Dioxide 23 (22-30) mmol/L BUN 16 (9-20) mg/dL Creatinine 0.85 (0.66-1.25) mg/dL Glucose 98 (74-99) mg/dL Calcium 9.2 (8.4-10.2) mg/dL AST 36 (17-59) U/L ALT 61 H (4-49) U/L Alkaline Phosphatase 84 (38-126) U/L Total Protein 7.8 (6.3-8.2) g/dL Albumin 4.7 (3.5-5.0) g/dL Current Medications Generic Name Dose Route Start Last Admin Trade Name Freq PRN Reason Stop Dose Admin Acetaminophen 650 mg 07/13/23 16:45 Acetaminophen Tab 325 Mg Tab PO Q6HR PRN Mild Pain (Scale 1 to 3) Sodium Chloride 1,000 mls @ 20 mls/hr 07/13/23 08:30 Saline 0.9% IV 08/12/23 08:31 .Q24H KT Acetaminophen 1,000 mg/ IV 100 mls @ 400 mls/hr 07/13/23 16:45 Solution IVPB 07/13/23 16:59 ONCE ONE Sodium Chloride 12 ml 07/13/23 16:45 Sodium Chloride 0.9% Flush 10 Ml Syringe IV Q12HR PRN Line Flush Intake and Output 07/13/23 07/13/23 07/13/23 06:59 14:59 22:59 Intake Total 520 180 Balance 520 180 Intake: IV 520 180 Other: Weight 133.3 kg Patient Weight 07/14/23 06:59 Weight 133.3 kg 07/13/23 13:00
--- NOTE | 2023-07-13 17:01 | P.EPPROC ---
- EP Procedure Note Electrophysiology Procedure Note: Diagnosis Presyncope and palpitations associated with supraventricular tachycardia greater than 230 beats a minute narrow QRS Possible one-to-one atrial tachycardia. However the patient states that the tachycardia did not terminate with Valsalva maneuver possibly Exercise triggered Final diagnosis Evidence for slow pathway conduction at baseline AV penelope reentrant tachycardia that quickly degenerated into atrial fibrillation and then organized into a 2;1 atrial tachycardia, on Isopril Status post slow pathway ablation and AV penelope reentry was rendered noninducible Thereafter on Isopril with straight pacing no AV penelope reentry was induced, nor was any atrial fibrillation inducible Details Patient was brought to the EP lab in a fasting state. Written informed consent was obtained prior to the procedure. Venous sheaths were placed in the right left femoral veins and via these diagnostic catheters were positioned in the high right atrium, coronary sinus, right ventricle and His bundle area A full EP study was performed. Sinus cycle length 676 ms, IN interval 144 ms, QRS 91 and QT 339 ms AH interval 75 ms and HV interval 39 ms Sinus node recovery x 1 normal AV node Wenckebach block 290 ms Slow pathway conduction antegradely at a pacing cycle length of 320 ms VA Wenckebach block 250 ms Evidence of slow pathway conduction with a jump in the AH interval associated with single echo beats with atrial extra stimulation from the coronary sinus and from the high right atrium High-dose Isopril was begun straight pacing was performed AV penelope reentry was induced. The ventricular rate was greater than 220 bpm This quickly degenerated into atrial fibrillation and then subsequently organized to a 2-1 atrial tachycardia Isuprel was stopped. 2.5 mg of metoprolol was administered Subsequently the patient went to sinus rhythm A long sheath was placed along with a mapping and ablation catheter 3D electroanatomic mapping was performed. The coronary sinus floor, os and the His bundle cloud were mapped and tagged Slow pathway mapping was performed RF ablation was performed anterior to the coronary sinus and just outside it. The ablation lesions were correct at the coronary sinus os Junctional rhythm was obtained Slow pathway was completely eliminated Following that high-dose Isopril was administered Straight pacing was once again performed There was no evidence for slow pathway conduction antegradely AV penelope reentry was not inducible Atrial fibrillation was not inducible Ventricular stimulation was performed both straight pacing and extra stimulation was performed The retrograde conduction was midline and decremental Patient tolerated procedure well without any acute complications. Sheaths were removed and Vascade closure device applied
[2023-07-13] MEDS: ACETAMINOPHEN IV (For NPO) 1,000 MG in EMPTY BAG 1 BAG IVPB ONE (17:04)
[2023-07-13] MEDS: SODIUM CHLORIDE 0.9% 1,000 ML IV SCH (17:06)
[2023-07-14 03:37] VITALS: RESP 16
[2023-07-14 07:48] LABS: Basophils # (A) 0.1 k/uL (0-0.2); Basophils % (A) 1 %; Eosinophils # (A) 0.4 k/uL (0-0.7); Eosinophils % (A) 4 %; HCT 46.3 % (39.0-53.0); HGB 15.1 gm/dL (13.0-17.5); Lymphocytes # (A) 3.2 k/uL (1.0-4.8); Lymphocytes % (A) 35 %; MCH 27.6 pg (25.0-35.0); MCHC 32.6 g/dL (31.0-37.0); MCV 84.6 fL (80.0-100.0); Mean Platelet Volume 8.1; Monocytes # (A) 0.7 k/uL (0-1.0); Monocytes % (A) 7 %; Neutrophils # (A) 4.8 k/uL (1.3-7.7); Neutrophils % (A) 52 %; Platelet Count 213 k/uL (150-450); RBC 5.48 m/uL (4.30-5.90); RDW 12.9 % (11.5-15.5); WBC 9.2 k/uL (3.8-10.6)
[2023-07-14 08:26] VITALS: BP 129/86; PULSE 83; TEMP 97.8
[2023-07-14] MEDS: METOPROLOL TARTRATE 50 MG TAB PO SCH (08:50)
--- NOTE | 2023-07-14 09:51 | P.PN ---
Subjective This is a 33-year-old male who underwent SVT ablation with Dr. Chavis on 07/13/2023. Overnight patient did have an episode of atrial fibrillation with aberrancy. He is maintaining sinus mechanism this morning. He denies any chest pain or pressure. He denies any shortness of breath. The patient was deemed stable for discharge home today from a cardiac standpoint Discharge diagnosis SVT, status post ablation Atrial fibrillation with keara Nurse practitioner note has been reviewed by physician. Signing provider agrees with the documented findings, assessment, and plan of care documented by GREETING CARD WRITER as a scribe. Objective - Vital Signs Vital signs: Vital Signs Temp 97.8 F 07/14/23 07:05 Pulse 83 07/14/23 07:05 Resp 16 07/14/23 07:05 BP 129/86 07/14/23 07:05 Pulse Ox 94 L 07/14/23 07:05 FiO2 Intake & Output 07/13/23 07/14/23 07/14/23 18:59 06:59 18:59 Intake Total 700 600 Balance 700 600 Weight 133.3 kg Intake: IV 700 Oral 600 Other: Voiding Method Toilet Urinal Urinal # Voids 1 - Labs CBC & Chem 7: 07/14/23 06:05 07/13/23 13:00 Labs: Abnormal Lab Results - Last 24 Hours (Table) 07/13/23 Range/Units 13:00 Total Bilirubin 2.3 H (0.2-1.3) mg/dL ALT 61 H (4-49) U/L
--- NOTE | 2023-07-14 11:46 | P.DS ---
Providers Date of admission: This is a 33-year-old male who underwent SVT ablation with Dr. Chavis on 07/13/2023. Overnight patient did have an episode of atrial fibrillation with aberrancy. He is maintaining sinus mechanism this morning. He denies any chest pain or pressure. He denies any shortness of breath. The patient was deemed stable for discharge home today from a cardiac standpoint Discharge diagnosis SVT, status post ablation Atrial fibrillation with keara Nurse practitioner note has been reviewed by physician. Signing provider agrees with the documented findings, assessment, and plan of care documented by INCINERATOR PLANT GENERAL SUPERVISOR as a scribe. Attending physician: Matt Chavis Primary care physician: Pam Lockwood Plan - Discharge Summary Discharge Rx Participant: Yes New Discharge Prescriptions: New Metoprolol Tartrate [Lopressor] 50 mg PO BID #180 tab Discontinued Rivaroxaban [Xarelto] 20 mg PO HS Discharge Medication List Metoprolol Tartrate [Lopressor] 50 mg PO BID #180 tab 07/14/23 [Rx] Follow up Appointment(s)/Referral(s): Matt Chavis MD [STAFF PHYSICIAN] - 1 Week Activity/Diet/Wound Care/Special Instructions: Post EP study - Ablation instructions 1. Keep access sites dry for 2 days. 2. No heavy lifting or straining for 2 days. 3. Avoid bending the hips repeatedly for 2 days. 4. You may go up and down stairs slowly Call if the following is noted 1. Bleeding, increasing swelling or pain at the access sites. 2. Increasing chest discomfort, especially upon taking a deep breath. 3. Increasing shortness of breath, at rest or with exertion. 4. Undue cough / phlegm 5. Difficulty or pain while swallowing. 6. Pain or change in color in the extremities. 7. Fever, chills, rigors. 8. Increasing headache or neurologic symptoms. 9. Dizziness, fainting, palpitations Stop Xarelto Discharge Disposition: HOME SELF-CARE
== END 2023-07-14 13:40 | disposition home or self-care (01) ==
LOC: CATHEP 12:35 → 6NMEDSUR 16:33 → CATHEP 07-14 13:40
PROVIDERS: ATTEND Internal Medicine Clinical Cardiac Electrophysiology
DX: I47.10 Supraventricular tachycardia, unspecified (principal); E78.5 Hyperlipidemia, unspecified; I48.91 Unspecified atrial fibrillation; G47.33 Obstructive sleep apnea (adult) (pediatric); K58.9 Irritable bowel syndrome, unspecified; Z79.01 Long term (current) use of anticoagulants; Z98.890 Other specified postprocedural states; Z79.899 Other long term (current) drug therapy
CPT/HCPCS: 93623; 93653; 86900; 86901; 80053; 84443; 85025; 86850; C1894; C1769; C1760; C1730 ×3; C1893; C1732; J2001; J1644; J0131